=== PATIENT | female | born 1970 | race Caucasian/White ===

== ENCOUNTER 2017-07-04 10:20 | Emergency (ER) ==
--- NOTE | 2017-07-04 10:25 | ED.PDOC ---
General ED Provider: Dr. DANNIELLE VAZQUEZ Chief Complaint: Altered Mental Status Stated Complaint: Patient is a 46 year of female who comes to the ER with complain of Memory loss of one hour while visiting [facility] last pm Admits to Drinking 3 beers. Woke up this morning with severe headache which she has had before but not this bad. Time Seen by Physician: 10:39 Information Source: Patient, Family Exam Limitations: No limitations Nursing and Triage Documentation Reviewed and Agree: Yes Neurological Complaint Exam - Headache Complaint/Exam Onset: Sudden Duration: Started early this Am Symptoms Are: Still present Timing: Constant Worst Headache Ever: No Initial Severity: Severe Current Severity: Severe Location: Diffuse Aggravating: Reports: None Associated Signs and Symptoms: Reports: Nausea, Vomiting. Denies: Dizziness, Seizure, Sinus pressure, Fever, Neck pain, Neck stiffness, Decreased LOC, Visual changes Related Surgical History: Reports: None SAH Risk Factors: Reports: None Meningitis Risk Factors: Reports: None SDH Risk Factors: Reports: None Normal Head CT Within Last 12 Months: No Temporal Artery Tenderness: Present: None Sinus Tenderness: Present: None TMJ Tenderness: Present: None Glascow Coma Scale (see protocol): 15 Meningeal Signs Positive: No Pain on Passive Flexion-Positive Kernig's: No ROM Limited In: No Limitiations Focal Weakness: Present: None Focal Sensory Loss: Present: None Gait: Unsteady Nystagmus Present: No Gag Reflex Present: No [id number]: Abnormal right Babinski Sign: Negative Right, Negative Left Heel to Toe Normal: Yes Differential Diagnoses: Migraine, Other (Amnesia ) Review of Systems - Review Of Systems Constitutional: Reports: Loss of appetite Eyes: Reports: No symptoms Ears, Nose, Mouth, Throat: Reports: No symptoms Respiratory: Reports: No symptoms Cardiac: Reports: No symptoms GI: Reports: Nausea, Poor appetite, Vomiting : Reports: No symptoms Musculoskeletal: Reports: No symptoms Skin: Reports: No symptoms Neurological: Reports: Headache, Other (Memory loss of one hour from last night. ) Endocrine: Reports: No symptoms Hematologic/Lymphatic: Reports: No symptoms All Other Systems: Reviewed and Negative Past Medical History - Past Medical History Previously Healthy: Yes Endocrine: Reports: None Cardiovascular: Reports: None Respiratory: Reports: None Hematological: Reports: None Gastrointestinal: Reports: None Genitourinary: Reports: None Neuro/Psych: Reports: Migraine Musculoskeletal: Reports: None Cancer: Reports: None - Surgical History General Surgical History: Reports: Appendectomy, Cholecystectomy, Other (IUD ) - Family History Family History: Reports: Unknown - Social History Alcohol Screening: Occasionally Physical Exam - Physical Exam Appearance: Ill-appearing Ill-appearing: Moderate Pain Distress: Severe Eyes: GEORGE, EOMI Neck: Supple Respiratory: Airway patent Cardiovascular: RRR Musculoskeletal: Normal strength Skin: Warm, Dry Neurological: Sensation intact, Motor intact, Reflexes intact, Cranial nerves intact, Alert, Oriented Psychiatric: Anxious Interpretation - Radiology Interpretation Radiology Interpretation By: Radiologist Radiology Results: Negative Exam Interpreted: CT Scan (head ) Critical Care Note - Critical Care Note Total Time (mins): 0 Course - Course Hematology/Chemistry: 07/04/17 10:40 07/04/17 10:40 Orders, Labs, Meds: Lab Review 07/04/17 07/04/17 07/04/17 10:40 10:40 12:45 WBC 6.89 RBC 4.39 Hgb 13.5 Hct 38.9 MCV 88.6 MCH 30.8 MCHC 34.7 RDW Coeff of Beau 11.9 Plt Count 183 Immature Gran % (Auto) 0.3 Neut % (Auto) 79.1 Lymph % (Auto) 15.5 [place] % (Auto) 4.1 Eos % (Auto) 0.3 Baso % (Auto) 0.7 Immature Gran # (Auto) 0.0 Neut # 5.5 Lymph # 1.1 [place] # 0.3 L Eos # 0.0 Baso # 0.1 Sodium 142 Potassium 4.1 Chloride 109 H Carbon Dioxide 22 Anion Gap 15.1 BUN 9 Creatinine 0.68 Estimated GFR (MDRD) 94.00 BUN/Creatinine Ratio 13.23 Glucose 101 Calcium 9.5 Total Bilirubin 0.64 AST 14 L ALT 11 L Alkaline Phosphatase 55 Total Protein 7.5 Albumin 4.1 Globulin 3.4 Albumin/Globulin Ratio 1.21 Amylase 76 Lipase 36 Urine Color Yellow Urine Clarity Clear Urine pH 7.5 Ur Specific [place] 1.015 Urine Protein Negative Urine Glucose (UA) Negative Urine Ketones Negative Urine Blood Negative Urine Nitrite Negative Urine Bilirubin Negative Urine Urobilinogen 1.0 Ur Leukocyte Esterase Negative Urine Test Urine Opiates Screen Ur Oxycodone Screen Urine Methadone Screen Ur Propoxyphene Screen Ur Barbiturates Screen U Tricyclic Antidepress Ur Phencyclidine Scrn Ur Amphetamine Screen U Methamphetamines Scrn U Benzodiazepines Scrn Urine Cocaine Screen U Cannabinoids Screen 07/04/17 07/04/17 12:45 12:45 WBC RBC Hgb Hct MCV MCH MCHC RDW Coeff of Beau Plt Count Immature Gran % (Auto) Neut % (Auto) Lymph % (Auto) [place] % (Auto) Eos % (Auto) Baso % (Auto) Immature Gran # (Auto) Neut # Lymph # [place] # Eos # Baso # Sodium Potassium Chloride Carbon Dioxide Anion Gap BUN Creatinine Estimated GFR (MDRD) BUN/Creatinine Ratio Glucose Calcium Total Bilirubin AST ALT Alkaline Phosphatase Total Protein Albumin Globulin Albumin/Globulin Ratio Amylase Lipase Urine Color Urine Clarity Urine pH Ur Specific [place] Urine Protein Urine Glucose (UA) Urine Ketones Urine Blood Urine Nitrite Urine Bilirubin Urine Urobilinogen Ur Leukocyte Esterase Urine Test Negative Urine Opiates Screen Negative Ur Oxycodone Screen Negative Urine Methadone Screen Negative Ur Propoxyphene Screen Negative Ur Barbiturates Screen Negative U Tricyclic Antidepress Negative Ur Phencyclidine Scrn Negative Ur Amphetamine Screen Negative U Methamphetamines Scrn Negative U Benzodiazepines Scrn Negative Urine Cocaine Screen Negative U Cannabinoids Screen Negative Orders Category Date Time Status ED IV/MEDIPORT/POWERPORT .ONCE EMERGENCY 07/04/17 10:38 Active AMYLASE Stat LAB 07/04/17 10:40 Completed CBC W/ AUTO DIFF Stat LAB 07/04/17 10:40 Completed COMPREHENSIVE METABOLIC PANEL Stat LAB 07/04/17 10:40 Completed DRUG SCREEN, URINE, RAPID Stat LAB 07/04/17 12:45 Completed LIPASE Stat LAB 07/04/17 10:40 Completed URINALYSIS C & S IF INDICATED Stat LAB 07/04/17 12:45 Completed URINE Stat LAB 07/04/17 12:45 Completed 0.9 % Sodium Chloride [Saline Flush] MEDS 07/04/17 10:38 Discontinued 1 syr IVF PRN PRN Ketorolac Tromethamine [Toradol] MEDS 07/04/17 11:08 Discontinued 30 mg IVP ONCE STA Ondansetron HCl/Pf [Zofran 4 mg/2 ml] MEDS 07/04/17 10:38 Discontinued 4 mg IVP ONCE STA Promethazine HCl [Phenergan 25 mg/ml Vial] MEDS 07/04/17 13:35 Discontinued 25 mg .ROUTE .STK-MED ONE Promethazine HCl [Phenergan 25 mg/ml Vial] 25 mg MEDS 07/04/17 13:08 Discontinued 0.9 % Sodium Chloride [Sodium Chloride] 50 ml IV ONCE Sodium Chloride 0.9% [Sodium Chloride] 1,000 ml MEDS 07/04/17 10:[address] HEAD W/O CONTRAST Stat RADS 07/04/17 10:24 Completed Medications Discontinued Medications Generic Name Dose Route Start Last Admin Trade Name Freq PRN Reason Stop Dose Admin Sodium Chloride 1,000 mls @ 1,000 mls/hr 07/04/17 10:38 07/04/17 10:52 Sodium Chloride IV 07/04/17 11:37 1,000 mls/hr BOLUS STA Administration Promethazine HCl 25 mg/ Sodium 51 mls @ 75 mls/hr 07/04/17 13:08 07/04/17 13: 39 Chloride IV 07/04/17 13:48 75 mls/hr ONCE STA Administration Ketorolac Tromethamine 30 mg 07/04/17 11:08 07/04/17 11:30 Toradol IVP 07/04/17 11:09 30 mg ONCE STA Administration Ondansetron HCl 4 mg 07/04/17 10:38 07/04/17 10:55 Zofran 4 Mg/2 Ml IVP 07/04/17 10:39 4 mg ONCE STA Administration Sodium Chloride 1 syr 07/04/17 10:38 07/04/17 10:52 Saline Flush IVF 1 syr PRN PRN Administration To flush IV Vital Signs: Temp Pulse Resp BP Pulse Ox 07/04/17 10:21 98.6 F 91 H 20 149/84 H 98 Departure - Departure Time of Disposition: 13:08 Disposition: HOME SELF-CARE Discharge Problem: Atypical migraine Instructions: Migraine Headache (ED) Condition: Fair Pt referred to PMD for follow-up: Yes Additional Instructions: Take medications as prescribed Follow up with PCP in 3 days Prescriptions: Ketorolac Tromethamine [Toradol] 10 mg PO Q6H #20 tablet Ondansetron HCl [Zofran Tab] 4 mg PO Q8H PRN #20 tablet PRN Reason: Nausea / Vomiting Allergies/Adverse Reactions: Allergies epinephrine Adverse Reaction (Verified 07/04/17 10:30) Home Medications: Ambulatory Orders Ketorolac Tromethamine [Toradol] 10 mg PO Q6H #20 tablet 07/04/17 Ondansetron HCl [Zofran Tab] 4 mg PO Q8H PRN #20 tablet 07/04/17 Disposition Discussed With: Patient
[2017-07-04 10:28] VITALS: BP 149/84; TEMP 98.6; BMI 25.8
[2017-07-04] MEDS ORDERED: ZOFRAN 4 MG/2 ML IVP STA (10:38)
[2017-07-04] MEDS ORDERED: SODIUM CHLORIDE 1,000 ML IV STA (10:38)
[2017-07-04 10:47] LABS: BASOPHILS # (AUTO) 0.1 K/uL (0-0.2); BASOPHILS % (AUTO) 0.7 % (0.0-3.0); EOSINOPHILS % (AUTO) 0.3 % (0.0-7.0); HEMATOCRIT 38.9 % (37.0-47.0); HEMOGLOBIN 13.5 g/dl (12.0-16.0); IMMATURE GRANULOCYTE % (AUTO) 0.3 % (0.0-5.0); LYMPHOCYTES # (AUTO) 1.1 K/uL (0.60-3.4); LYMPHOCYTES % (AUTO) 15.5 (10.0-50.0); MEAN CORPUSCULAR HEMOGLOBIN 30.8 pg (27.0-31.0); MEAN CORPUSCULAR HGB CONC 34.7 (31.8-35.4); MEAN CORPUSCULAR VOLUME 88.6 fl (81.0-99.0); MONOCYTES # (AUTO) 0.3 K/uL (0.4-2.0); MONOCYTES % (AUTO) 4.1 (0-10); NEUTROPHILS # (AUTO) 5.5 K/ul (2.0-6.9); NEUTROPHILS % (AUTO) 79.1; PLATELET COUNT 183 10^3/uL (140-440); RED BLOOD COUNT 4.39 10^6/ul (4.20-5.40); WHITE BLOOD COUNT 6.89 K/ul (4.6-10.2)
[2017-07-04 11:08] LABS: ALBUMIN 4.1 g/dL (3.4-5.0); ALBUMIN/GLOBULIN RATIO 1.21; ANION GAP 15.1; BILIRUBIN,TOTAL 0.64 mg/dL (0.00-1.20); BUN/CREATININE RATIO 13.23; CALCIUM 9.5 mg/dL (8.2-10.2); CREATININE 0.68 mg/dL (0.60-1.30); POTASSIUM 4.1 mmol/L (3.5-5.10); TOTAL PROTEIN 7.5 g/dL (6.4-8.2)
[2017-07-04] MEDS ORDERED: TORADOL IVP STA (11:08)
--- NOTE | 2017-07-04 11:39 | CT ---
Exam: CT brain without contrast Clinical indication: Acute amnesia. Comparison: None available. TECHNIQUE: Axial unenhanced CT images from the skull base through the brain were obtained. Coronal and sagital reformats were performed. Findings: There is no evidence of intra or extra-axial hemorrhage. There is no evidence of mass, infarct or midline shift. The ventricles and basilar cisterns are within normal limits. The visualized paranasal sinuses and mastoid air cells are clear. The visualized bony structures are unremarkable. Impression: Negative unenhanced CT of the brain.
[2017-07-04 12:59] LABS: BILIRUBIN,URINE Negative (NEGATIVE); KETONES,URINE Negative (NEGATIVE); LEUKOCYTE ESTERASE ,URINE Negative (NEGATIVE); NITRITE,URINE Negative (NEGATIVE); PH,URINE 7.5 (5-9); PROTEIN,URINE Negative (NEGATIVE); URINE, BLOOD Negative (NEGATIVE)
[2017-07-04 13:03] LABS: URINE PREGNANCY INTERNAL QC INTERNAL QC VALID
[2017-07-04 13:04] LABS: ADD URINE MICROSCOPIC NO
[2017-07-04] MEDS ORDERED: PHENERGAN 25 MG/ML VIAL 25 MG in SODIUM CHLORIDE 50 ML IV STA (13:08)
[2017-07-04 13:09] LABS: COCAIN SCREEN,URINE NEGATIVE (NEGATIVE)
[2017-07-04] MEDS ORDERED: PHENERGAN 25 MG/ML VIAL ONE (13:35)
== END 2017-07-04 14:37 | disposition home or self-care (01) ==
LOC: ED 10:20
DX: G43.909 Migraine, unspecified, not intractable, without status migrainosus (principal)
CPT/HCPCS: 36415; 80053; 80306; 81001; 81025; 82150; 83690; 85025; 96361; 96365; 96375; 99283